=== PATIENT | female | born 1970 | race Two or more races ===

== ENCOUNTER → 2024-08-09 | Outpatient (CLI) | payer MEDICAID, SELFPAY ==
--- NOTE | 2024-08-09 14:30 | ECHO_ITS ---
Transthoracic Echo Report Ht (in): 65 Wt (lb): 280 Exam Location: Echo Lab Status: Preadmit [employer] Player: Jessica Craig Indications: Procedure Performed: BP: / HR: Rhythm: Sinus Technical Quality: Fair MEASUREMENTS (Male / Female) Normal Values 2D ECHO LV Diastolic Diameter PLAX 4.8 cm 4.2 - 5.9 / 3.9 - 5.3 cm LV Systolic Diameter PLAX 3.1 cm IVS Diastolic Thickness 1.1 cm 0.6 - 1.0 / 0.6 - 0.9 cm LVPW Diastolic Thickness 0.9 cm 0.6 - 1.0 / 0.6 - 0.9 cm LV Relative Wall Thickness 0.4 LVOT Diameter 1.9 cm LA Volume Index 14.2 cm?/m? 16 - 28 cm?/m? Ascending Aorta Diameter 2.7 cm M-MODE Aortic Root Diameter MM 2.7 cm LA Systolic Diameter MM 3.6 cm LA Ao Ratio MM 1.3 AV Cusp Separation MM 2.2 cm DOPPLER AV Peak Velocity 109.0 cm/s AV Peak Gradient 4.8 mmHg AV Mean Gradient 3.0 mmHg AV Velocity Time Integral 23.6 cm LVOT Peak Velocity 93.1 cm/s LVOT Peak Gradient 3.5 mmHg LVOT Velocity Time Integral 18.0 cm AV Area Cont Eq vti 2.2 cm? AV Area Cont Eq pk 2.4 cm? MV Peak Velocity 64.6 cm/s MV Peak Gradient 1.7 mmHg MV Mean Velocity 47.5 cm/s MV Mean Gradient 1.0 mmHg MV Area PHT 4.2 cm? Mitral E Point Velocity 65.5 cm/s Mitral A Point Velocity 61.6 cm/s Mitral E to A Ratio 1.1 LV E' Lateral Velocity 10.0 cm/s Mitral E to LV E' Lateral Ratio 6.5 LV E' Septal Velocity 6.6 cm/s Mitral E to LV E' Septal Ratio 9.9 TR Peak Velocity 157.0 cm/s TR Peak Gradient 9.9 mmHg FINDINGS Left Ventricle Normal left ventricular size, wall thickness, systolic function with no obvious regional wall motion abnormalities. The ejection fraction is visually estimated at 60-65%. Right Ventricle The right ventricle is normal in size and systolic function. The estimated right ventricular systoli c pressure, 17mmHg. RAP 5. Left Atrium The left atrium is normal by two-dimensional, color flow and Doppler imaging with no structural abnormalities, no thrombus formation present. Right Atrium The right atrium is normal by two-dimensional imaging, color flow and Doppler imaging with no struct ural abnormalities, no thrombus formation present. Atrial Septum The interatrial septum appears normal with no evidence of a shunt. Aorta The aorta is normal by two-dimensional, color flow and Doppler interrogation. Mitral Valve The mitral valve is normal by two-dimensional, color flow and Doppler interrogation. There is trace mitral valve regurgitation. Aortic Valve The aortic valve is trileaflet and normal by two-dimensional, color flow and Doppler interrogation. There is no significant aortic valve regurgitation. Tricuspid Valve The tricuspid valve is normal by two-dimensional, color flow and Doppler interrogation. There is tra ce tricuspid valve regurgitation. Pulmonic Valve There is no significant pulmonic valve regurgitation. Vessels The pulmonary artery appears normal. The inferior vena cava pulmonary and hepatic veins appear harshil l. Pericardium The pericardium is normal by two-dimensional imaging. There is no significant pericardial effusion. Other Findings Liver cyst present. CONCLUSIONS Indication: Malignant neoplasm Normal LV size and function. Estimated EF 60-65% Normal RV size and function. Trace MR, TR. Large Liver cyst present. Clint Kohler (Electronically Signed) Final Date: 09 August 2024 18:58
== END | disposition home or self-care (01) ==
LOC: SDIM 14:12
PROVIDERS: PCP Obstetrics & Gynecology; Referring Provider Internal Medicine Hematology & Oncology; Visit Provider Internal Medicine Hematology & Oncology
DX: K76.89 Other specified diseases of liver (principal); I08.1 Rheumatic disorders of both mitral and tricuspid valves; C50.212 Malignant neoplasm of upper-inner quadrant of left female breast
CPT/HCPCS: 93306

== ENCOUNTER 2024-08-10 10:50 | Outpatient (RCR) | payer MEDICAID, SELFPAY ==
--- NOTE | 2024-08-10 11:36 | CTCFLWUP_ITS ---
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 Postop TCH chemotherapy completed 11/10/2023 then adjuvant Herceptin started 11/30/2023. Adjuvant radi ation therapy completed 01/25/2024 4500 to 5040 cGy left breast and regional nodes with E boost to prim hans site Had PET/CT 07/12/2024 no mets. Examination of the left breast today reveals no sign of any recurrence .some left upper extremity lym phedema being cared for by lymphedema specialist in [place]. Assessment.1. Stage IIa HER2/conchita overexpressed receptor positive (status post partial mastectomy postop chemo and Herceptin and radiation therapy completed 01/25/2024. 2. Has trastuzumab to finish this year. Also on anastrozole 3. Seeing lymphedema specialist for her left upper extremity edema. 4. PET/CT 07/12/2024 no mets. 5. Has follow-up with her new medical oncologist Dr. Romero in 3 weeks. 6. Pt told that I will see her as needed in the future. Electronically signed by: Segundo Hinojosa M.D. 08/10/2024 11:33 AM
== END 2024-08-19 23:59 | disposition home or self-care (01) ==
LOC: SCTC 10:50
PROVIDERS: PCP Obstetrics & Gynecology; Referring Provider Obstetrics & Gynecology; Visit Provider Radiology Therapeutic Radiology
DX: C50.812 Malignant neoplasm of overlapping sites of left female breast (principal); Z17.0 Estrogen receptor positive status [ER+]; Z17.21 Progesterone receptor positive status; Z17.32 Human epidermal growth factor receptor 2 negative status; Z79.811 Long term (current) use of aromatase inhibitors; Z92.3 Personal history of irradiation; Z92.21 Personal history of antineoplastic chemotherapy; Z90.12 Acquired absence of left breast and nipple
CPT/HCPCS: 99213; G0463

== ENCOUNTER → 2024-08-15 | Outpatient (CLI) | payer MEDICAID, SELFPAY ==
[2024-08-14 15:41] LABS: HCG Qualitative,Urine Negative
--- NOTE | 2024-08-15 09:32 | XR_ITS ---
Examination: CT abdomen with intravenous contrast. Coronal 2-D reconstructions. Sagittal 2-D reconstructions. Date and time of exam:August 15, 2024 1002 hours INDICATIONS: History liver cysts, including 7 cm left lobe liver cyst on CT study May 03, 2023 CTDI: vol (mGy): 12.8 DLP: (mGycm): 536 Technique: Axial images of the abdomen have been obtained, 3 mm slice thickness, 60 cc [id number] 2-D sagittal coronal reconstructions Low dose protocols were performed. One or more of the following dose reduction techniques were used; automated exposure control, adjustment of the mA and/or KV according to patient size, use of iterative reconstruction technique. Findings: 8 cm left lobe liver cyst No gallstones Spleen not enlarged No pancreatic or adrenal mass No renal or ureteral calculi, no hydronephrosis Aorta normal size No bowel obstruction Normal appendix Grade 1 retrolisthesis L4 on L5 IMPRESSION: 8 cm left lobe liver cyst compared to 7 cm on May 03, 2023
== END | disposition home or self-care (01) ==
PROVIDERS: PCP Nurse Practitioner Family; Referring Provider Nurse Practitioner Family; Visit Provider Nurse Practitioner Family
DX: K76.89 Other specified diseases of liver (principal); Z32.00 Encounter for pregnancy test, result unknown
CPT/HCPCS: 74160; 81025; A4649; Q9967

== ENCOUNTER 2024-08-30 10:48 | Outpatient (RCR) | payer MEDICAID, SELFPAY ==
[2024-08-29 11:06] LABS: Basophils % (Auto) 1 % (0-2.5); Eosinophils # (Auto) 0.1 Thou/mm3 (0.0-0.5); Eosinophils % (Auto) 4 % (0-10); Hematocrit 38.9 % (36.0-46.0); Hemoglobin 12.9 g/dL (12.0-16.0); Immature Granulocytes % (Auto) 1 % (0-0); Immature Granulocytes Auto 0.02 Thou/mm3 (0.00-0.00); Lymphocytes # (Auto) 0.8 Thou/mm3 (1.0-4.8); Lymphocytes % (Auto) 20 % (10-50); Mean Corpuscular HGB Conc 33.2 g/dl (31.0-37.0); Mean Corpuscular Hemoglobin 29.9 pg (25.0-35.0); Mean Corpuscular Volume 90 fL (80-100); Monocytes # (Auto) 0.5 Thou/mm3 (0.0-0.8); Monocytes % (Auto) 12 % (0-12); Neutrophils # (Auto) 2.4 Thou/mm3 (1.8-7.7); Neutrophils % (Auto) 63 % (37-80); Nucleated Red Blood Cell % 0 /100 WBC (0); Platelet Count 204 Thou/mm3 (140-440); RDW Standard Deviation 44.8 fL (36.4-46.3); Red Blood Count 4.31 Miln/mm3 (4.00-5.20); White Blood Count 3.8 Thou/mm3 (3.6-11.0)
[2024-08-29 11:26] LABS: Alanine Aminotransferase 20 U/L (10-49); Albumin, Serum 4.5 gm/dL (3.5-5.0); Albumin/Globulin Ratio 1.7 (1.2-2.2); Alkaline Phosphatase 107 U/L (46-116); Anion Gap 6 (7-16); Aspartate Amino Transferase 15 U/L (0-34); BUN/Creatinine Ratio 21 Ratio (12-20); Bilirubin,Total 0.5 mg/dL (0.3-1.2); Blood Urea Nitrogen 15 mg/dL (9-23); Calcium 9.3 mg/dL (8.3-10.6); Calcium (Corrected) 9.3 mg/dL (8.5-10.1); Chloride 104 mMol/L (98-107); Creatinine (Component) 0.7 mg/dL (0.6-1.3); Globulin 2.6 gm/dL (2.3-3.5); Glucose 126 mg/dL (74-106); Osmolality,Calculated 276 (275-295); Potassium 3.9 mMol/L (3.4-5.1); Sodium 137 mMol/L (136-145); Total Protein 7.1 gm/dL (5.7-8.2); eGFR > 60 See Note
--- NOTE | 2024-09-17 18:42 | CTCFLWUP_ITS ---
Patient: SKYLER NO : 1970 Page 4 of 5 FOLLOW UP NOTE DATE OF SERVICE: 08/30/2024 NAME: SKYLER NO ACCOUNT: [id number] : 1970 AGE: 54 INTERVAL HISTORY: Patient is doing well with no new complaints ONCOLOGY HISTORY: DIAGNOSIS: Malignant neoplasm of upper-inner quadrant of left female breast [ICD10] C50.212 DATE OF DIAGNOSIS: 02/09/2023 STAGE/TNM: Stage IIa t1 cpN1 mi M0 ER positive HER2 positive status post adjuvant radiation completed on 5040 Gy left breast as well as regional lymph node boost TREATMENT HISTORY: Care?Plan Start?Date Cycle Day Intent AC-Taxol?Herceptin 06/01/2023 3 21 Curative?(adjuvant) TCH?1 08/15/2023 1 21 Curative?(adjuvant) Zoledronic?Acid?4?mg?adjuvant 06/06/2024 1 180 Curative?(adjuvant) Trastuzumab?6?mg/kg? To?Finish?the?Year 06/06/2024 1 21 Curative?(adjuvant) HISTORY OF PRESENT ILLNESS: This a 54-year-old Romanian speaking female with following oncology history. 10/24/2022: Bilateral screening mammogram 12/15/2022: Left breast diagnostic mammogram? 02/09/2023: Left breast ultrasound-guided biopsy? 03/17/2023: Patient had left breast lumpectomy as well as sentinel lymph node biopsy 05/03/2023: CT scan of the chest abdomen and pelvis with IV contrast? 05/05/2023: Echocardiogram?LVEF 55 to 60% 06/01/2023: Ms. No had 1 cycle of AC chemotherapy. Ms. No received AC chemotherapy due to short age of carboplatin. Unfortunately after the chemotherapy her left breast incision wound has opened u p which healed with secondary intention eventually. 08/16/2023?11/10/2019: Ms. No had 5 cycles of TCH chemotherapy. Continuing adjuvant Herceptin. 12/16/2023 - 01/25/2024: Ms. No had 5040 cGy radiation therapy to the left breast in the adjuvant set ting 01/12/2024: Ms. No is started on adjuvant anastrozole. OTHER MEDICAL HISTORY/CONDITIONS: Left?Breast?cancer?-?01/2023 Left breast lumpectomy wtih SLN biopsy - 03/17/23 Septoplasty - 20 yrs ago FAMILY HISTORY: Cancer History:?Paternal aunt - breast - dx 50's SOCIAL HISTORY: Occupational?History:?Unemployed Education?Level:?Attended College, did not graduate Marital?Status:? 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 MEDICATIONS: 1. anastrozole - 1 mg 1 tab 1 tab po q daily 2. Citracal plus D - 1500-200 mg-unit 1 tab Twice a Day 3. Green Tea - 100 mg Capsule As directed 4. meclizine - 25 mg 1 tab As directed 5. Tylenol Extra Strength - 500 mg 1 tab As directed Medications Last Reconciled by Korina López MA on 08/30/2024 ALLERGIES: No Known Drug Allergies REVIEW OF SYSTEMS: A complete 14-point review of systems was performed and is negative except as noted in interval histo ry. PHYSICAL EXAMINATION: VITAL SIGNS: Temperature?98, B/P?102/72, Oxygen?Saturation?98% Weight?208?lbs (Change?since?08/29/24: ?-0.8?lbs) PAIN: 0 - No pain ECOG Performance Status: 0 - Asymptomatic and fully active GENERAL APPEARANCE: Appears well, in no apparent distress, appropriately interactive. HEENT: Normocephalic, no temporal wasting, normal conjunctiva, no scleral icterus, normal hearing, li ps without lesions, neck normal range of motion. CARDIOVASCULAR: Not assessed. PULMONARY: Normal respiratory effort, no respiratory distress or use of accessory muscles, speaking i n full sentences, no tachypnea. EXTREMITIES: No pedal edema or cyanosis. SKIN: Normal skin appearance. NEUROLOGIC: Alert and oriented x4. PSHYCHIATRIC: Appropriate affect, mood normal, behavior normal, intact thought and speech. LABORATORY DATA: I have personally reviewed and interpreted each of the patient?s relevant lab tests, abnormal finding s are below: Date 08/29/24 ??GLUCOSE,RANDOM?(mg/dL) 126?H ??BLOOD?UREA?NITROGEN?(mg/dL) 15 ??CREATININE?(mg/dL) 0.70 ??SODIUM?(mmol/L) 137 ??POTASSIUM?(mmol/L) 3.9 ??CHLORIDE?(mmol/L) 104 ??CrCl?(CandG)?(ml/min) 105.72 ??AST/SGOT?(Unit/L) 15 ??ALT/SGPT?(Unit/L) 20 ??ALKALINE?PHOSPHATASE?(Unit/L) 107 ??BILIRUBIN,?TOTAL?(mg/dL) 0.5 ??PROTEIN?TOTAL?(gm/dl) 7.1 ??ALBUMIN,?SERUM?(gm/dl) 4.5 ??GLOBULIN?(gm/dl) 2.6 ??ALBUMIN/GLOBULIN?RATIO 1.7 ??CALCIUM,?SERUM?(mg/dL) 9.3 ??CALCIUM?SERUM?(CORRECTED)?(mg/dL) 9.3 ASSESSMENT/PLAN: Stage IIa HER2 positive ER positive status post lumpectomy 02/09/2023 post chemo and radiation complet ed on 01/25/2024 Patient have last 2 treatments of Herceptin left Tolerating well Patient also on anastrozole tolerating well Was already referred to lymphedema specialist and feeling better Last scan in June 2024 no mets Will get echocardiogram every 3 months Patient will need at least 1 echo after completing all Herceptin CBC CMP echo RETURN TO CLINIC: RTC in 2 months BILLING AND COMPLIANCE: I reviewed external records from providers outside my specialty as summarized above. I spent a total of 50 minutes on this patient?s care on the day of their visit excluding time spent related to any bi lled procedures. This time includes time spent with the patient as well as time spent documenting in the medical record, reviewing patients records and tests, obtaining history, placing orders, communi cating with other healthcare professionals, counseling the patient, family or caregiver, and/or care coordination for the diagnoses above. Electronically Signed by: Andres Romero MD T: 6:40 PM CC: PCP: Korina Donald Referring: Korina Donald This document was completed utilizing speech recognition software. Grammatical errors, random word in sertions, pronoun errors, and incomplete sentences are an occasional consequence of this system due t o software limitations, ambient noise, and hardware issues. Any formal questions or concerns about th e content, text or information contained within the body of this dictation should be directly address ed to the provider for clarification.
== END 2024-09-19 23:59 | disposition home or self-care (01) ==
LOC: SCTC 10:48
PROVIDERS: PCP Obstetrics & Gynecology; Referring Provider Obstetrics & Gynecology; Visit Provider Internal Medicine Hematology & Oncology
DX: C50.812 Malignant neoplasm of overlapping sites of left female breast (principal); Z17.0 Estrogen receptor positive status [ER+]; Z17.31 Human epidermal growth factor receptor 2 positive status; Z17.21 Progesterone receptor positive status; Z79.811 Long term (current) use of aromatase inhibitors; Z92.3 Personal history of irradiation
CPT/HCPCS: 36591; 80053; 85025; A4216; J1642; Q3014

== ENCOUNTER 2024-11-01 10:56 | Outpatient (RCR) | payer MEDICAID, SELFPAY ==
[2024-10-31 16:33] LABS: Basophils % (Auto) 1 % (0-2.5); Eosinophils # (Auto) 0.1 Thou/mm3 (0.0-0.5); Eosinophils % (Auto) 3 % (0-10); Hematocrit 39.5 % (36.0-46.0); Hemoglobin 13.5 g/dL (12.0-16.0); Immature Granulocytes % (Auto) 0 % (0-0); Immature Granulocytes Auto 0.01 Thou/mm3 (0.00-0.00); Lymphocytes # (Auto) 1.1 Thou/mm3 (1.0-4.8); Lymphocytes % (Auto) 27 % (10-50); Mean Corpuscular HGB Conc 34.2 g/dl (31.0-37.0); Mean Corpuscular Hemoglobin 30.8 pg (25.0-35.0); Mean Corpuscular Volume 90 fL (80-100); Monocytes # (Auto) 0.5 Thou/mm3 (0.0-0.8); Monocytes % (Auto) 11 % (0-12); Neutrophils # (Auto) 2.5 Thou/mm3 (1.8-7.7); Neutrophils % (Auto) 59 % (37-80); Nucleated Red Blood Cell % 0 /100 WBC (0); Platelet Count 163 Thou/mm3 (140-440); RDW Standard Deviation 44.8 fL (36.4-46.3); Red Blood Count 4.38 Miln/mm3 (4.00-5.20); White Blood Count 4.2 Thou/mm3 (3.6-11.0)
[2024-10-31 17:20] LABS: Alanine Aminotransferase 17 U/L (10-49); Albumin, Serum 4.3 gm/dL (3.5-5.0); Albumin/Globulin Ratio 1.7 (1.2-2.2); Alkaline Phosphatase 117 U/L (46-116); Anion Gap 4 (7-16); Aspartate Amino Transferase 22 U/L (0-34); BUN/Creatinine Ratio 35 Ratio (12-20); Bilirubin,Total 0.3 mg/dL (0.3-1.2); Blood Urea Nitrogen 21 mg/dL (9-23); Calcium 9.4 mg/dL (8.3-10.6); Calcium (Corrected) 9.4 mg/dL (8.5-10.1); Chloride 109 mMol/L (98-107); Creatinine (Component) 0.6 mg/dL (0.6-1.3); Globulin 2.5 gm/dL (2.3-3.5); Glucose 95 mg/dL (74-106); Osmolality,Calculated 278 (275-295); Potassium 3.7 mMol/L (3.4-5.1); Sodium 138 mMol/L (136-145); Total Protein 6.8 gm/dL (5.7-8.2); eGFR > 60 See Note
--- NOTE | 2024-11-01 13:17 | CTCFLWUP_ITS ---
Patient: SKYLER NO : 1970 Page 2 of 2 FOLLOW UP NOTE DATE OF SERVICE: 11/01/2024 NAME: SKYLER NO ACCOUNT: [id number] : 1970 AGE: 54 INTERVAL HISTORY: Patient is complaining of left sided chest pain. Pain is radiating to the arm. Patient says she also feels dizziness. She started having this chest pain while she was waiting for her clinic appointment ONCOLOGY HISTORY:?[facility] Hx? DIAGNOSIS: Malignant neoplasm of upper-inner quadrant of left female breast [ICD10] C50.212 DATE OF DIAGNOSIS: 02/09/2023 STAGE/TNM: Stage IIa t1 cpN1 mi M0 ER positive HER2 positive status post adjuvant radiation completed on 01/25/2024 5040 Gy left breast as well as regional lymph node boost TREATMENT HISTORY: Care?Plan Start?Date Cycle Day Intent AC-Taxol?Herceptin 06/01/2023 3 21 Curative?(adjuvant) TCH?1 08/15/2023 1 21 Curative?(adjuvant) Zoledronic?Acid?4?mg?adjuvant 06/06/2024 1 180 Curative?(adjuvant) Trastuzumab?6?mg/kg? To?Finish?the?Year 06/06/2024 1 21 Curative?(adjuvant) HISTORY OF PRESENT ILLNESS: This a 54-year-old German speaking female with following oncology history. 10/24/2022: Bilateral screening mammogram 12/15/2022: Left breast diagnostic mammogram? 02/09/2023: Left breast ultrasound-guided biopsy? 03/17/2023: Patient had left breast lumpectomy as well as sentinel lymph node biopsy 05/03/2023: CT scan of the chest abdomen and pelvis with IV contrast? 05/05/2023: Echocardiogram?LVEF 55 to 60% 06/01/2023: Ms. No had 1 cycle of AC chemotherapy. Ms. No received AC chemotherapy due to shortage of carboplatin. Unfortunately after the chemotherapy her left breast incision wound has opened up which healed with secondary intention eventually. 08/16/2023?11/10/2019: Ms. No had 5 cycles of TCH chemotherapy. Continuing adjuvant Herceptin. 12/16/2023 - 01/25/2024: Ms. No had 5040 cGy radiation therapy to the left breast in the adjuvant setting 01/12/2024: Ms. No is started on adjuvant anastrozole. OTHER MEDICAL HISTORY/CONDITIONS: Left?Breast?cancer?-?01/2023 Left breast lumpectomy wtih SLN biopsy - 03/17/23 Septoplasty - 20 yrs ago FAMILY HISTORY: Cancer History:?Paternal aunt - breast - dx 50's SOCIAL HISTORY: Occupational?History:?Unemployed Education?Level:?Attended College, did not graduate Marital?Status:? 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 MEDICATIONS: 1. anastrozole - 1 mg 1 tab 1 tab po q daily 2. Citracal plus D - 1500-200 mg-unit 1 tab Twice a Day 3. Green Tea - 100 mg Capsule As directed 4. meclizine - 25 mg 1 tab As directed 5. Tylenol Extra Strength - 500 mg 1 tab As directed?[place]ra Meds? Medications Last Reconciled by Korina López MA on 11/01/2024 ALLERGIES: No Known Drug Allergies REVIEW OF SYSTEMS: A complete 14-point review of systems was performed and is negative except as noted in interval history. PHYSICAL EXAMINATION:?[facility] PE? VITAL SIGNS: Temperature?99, B/P?129/83, Oxygen?Saturation?99% Weight?202?lbs (Change?since?10/31/24:?-3.8?lbs) PAIN: 0 - No pain ECOG Performance Status: 0 - Asymptomatic and fully active GENERAL APPEARANCE: Appears well, in no apparent distress, appropriately interactive. HEENT: Normocephalic, no temporal wasting, normal conjunctiva, no scleral icterus, normal hearing, lips without lesions, neck normal range of motion. CARDIOVASCULAR: Not assessed. PULMONARY: Normal respiratory effort, no respiratory distress or use of accessory muscles, speaking in full sentences, no tachypnea. EXTREMITIES: No pedal edema or cyanosis. SKIN: Normal skin appearance. NEUROLOGIC: Alert and oriented x4. PSHYCHIATRIC: Appropriate affect, mood normal, behavior normal, intact thought and speech. LABORATORY DATA: I have personally reviewed and interpreted each of the patient?s relevant lab tests, abnormal findings are below: Date 10/31/24 ??WHITE?BLOOD?COUNT?(Thou/mm3) 4.2 ??RED?BLOOD?COUNT?(Miln/mm3) 4.38 ??HEMOGLOBIN?(gm/dl) 13.5 ??HEMATOCRIT?(%) 39.5 ??PLATELET?COUNT?(Thou/mm3) 163 ??NEUTROPHILS?%,?AUTO?(%) 59 ??LYMPH?%,?AUTO?(%) 27 ??NEUTROPHILS,?AUTO?(Thou/mm3) 2.5 ASSESSMENT/PLAN:?Handy Romero Assessment/Plan? #1 left-sided chest pain Associated with the dizziness and pain radiating to the left arm History of left-sided chest pain can be from lymphedema Will send to the emergency room for EKG and troponins Patient will be set sent on wheelchair #2 stage IIa HER2 positive ER positive status post lumpectomy 02/09/2023 post chemo and radiation completed on 01/25/2024 Patient has completed adjuvant Herceptin Patient also on anastrozole tolerating well Was already referred to lymphedema specialist and feeling better Last scan in June 2024 no mets Will get echocardiogram every 3 months Patient will need at least 1 echo after completing all Herceptin Continue anastrozole and calcium and vitamin D Echo was scheduled CBC CMP RETURN TO CLINIC: I will see her back in the clinic in 2 months. BILLING AND COMPLIANCE: I reviewed external records from providers outside my specialty as summarized above. I spent a total of 50 minutes on this patient?s care on the day of their visit excluding time spent related to any billed procedures. This time includes time spent with the patient as well as time spent documenting in the medical record, reviewing patients records and tests, obtaining history, placing orders, communicating with other healthcare professionals, counseling the patient, family or caregiver, and/or care coordination for the diagnoses above. Electronically Signed by: Andres Romero MD T: 1:14 PM CC: PCP: Korina Donald Referring: Korina Donald This document was completed utilizing speech recognition software. Grammatical errors, random word insertions, pronoun errors, and incomplete sentences are an occasional consequence of this system due to software limitations, ambient noise, and hardware issues. Any formal questions or concerns about the content, text or information contained within the body of this dictation should be directly addressed to the provider for clarification.
== END 2024-11-17 23:59 | disposition home or self-care (01) ==
LOC: SCTC 10:56
PROVIDERS: PCP Obstetrics & Gynecology; Referring Provider Obstetrics & Gynecology; Visit Provider Internal Medicine Hematology & Oncology
DX: C50.812 Malignant neoplasm of overlapping sites of left female breast (principal); Z17.0 Estrogen receptor positive status [ER+]; Z17.21 Progesterone receptor positive status; Z17.32 Human epidermal growth factor receptor 2 negative status; Z90.12 Acquired absence of left breast and nipple; Z92.3 Personal history of irradiation; Z92.21 Personal history of antineoplastic chemotherapy; R07.9 Chest pain, unspecified; R42 Dizziness and giddiness; Z79.811 Long term (current) use of aromatase inhibitors
CPT/HCPCS: 36591; 80053; 85025; 99212; A4216; J1642; G0463

== ENCOUNTER 2024-11-01 12:03 | Emergency (ER) | payer MEDICAID, SELFPAY ==
--- NOTE | 2024-11-01 12:59 | EKG_ITS ---
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
--- NOTE | 2024-11-01 12:59 | PD.EDRME ---
Rapid Medical Screening Exam RME Arrival date/time: 11/01/24 12:03 54-year-old female with a history of breast cancer presents to the emergency room with a chief complaint of dizziness, lightheadedness, and numbness to the left arm x 1 day. Patient was sent over by the cancer treatment center. I have greeted and performed a focused initial assessment of this patient. A comprehensive ED assessment and evaluation of the patient, analysis of all test results, and completion of the medical decision making process will be conducted by additional ED providers. Chief Complaint: Shortness of Breath/Dyspnea Time Seen by Provider: 11/01/24 12:50 Vital signs reviewed by provider: Yes
[2024-11-01 13:02] VITALS: BP 119/66; PULSE 73; RESP 16; TEMP 36.7; O2SAT 100; BMI 33.6
[2024-11-01 13:19] LABS: Basophils % (Auto) 1 % (0-2.5); Eosinophils # (Auto) 0.1 Thou/mm3 (0.0-0.5); Eosinophils % (Auto) 2 % (0-10); Hematocrit 42.9 % (36.0-46.0); Hemoglobin 14.3 g/dL (12.0-16.0); Immature Granulocytes % (Auto) 0 % (0-0); Immature Granulocytes Auto 0.01 Thou/mm3 (0.00-0.00); Lymphocytes # (Auto) 1.2 Thou/mm3 (1.0-4.8); Lymphocytes % (Auto) 29 % (10-50); Mean Corpuscular HGB Conc 33.3 g/dl (31.0-37.0); Mean Corpuscular Hemoglobin 30.2 pg (25.0-35.0); Mean Corpuscular Volume 91 fL (80-100); Monocytes # (Auto) 0.5 Thou/mm3 (0.0-0.8); Monocytes % (Auto) 12 % (0-12); Neutrophils # (Auto) 2.4 Thou/mm3 (1.8-7.7); Neutrophils % (Auto) 56 % (37-80); Nucleated Red Blood Cell % 0 /100 WBC (0); Platelet Count 167 Thou/mm3 (140-440); Red Blood Count 4.73 Miln/mm3 (4.00-5.20); White Blood Count 4.3 Thou/mm3 (3.6-11.0)
[2024-11-01 13:34] LABS: B-Type Natriuretic Peptide < 20 pg/mL (0-100)
[2024-11-01 13:35] LABS: Partial Thromboplastin Time 29.5 Seconds (22.0-36.0); Prothrombin Time 10.8 Seconds (9.0-12.2)
[2024-11-01 13:37] LABS: Alanine Aminotransferase 18 U/L (10-49); Albumin, Serum 4.7 gm/dL (3.5-5.0); Albumin/Globulin Ratio 1.6 (1.2-2.2); Alkaline Phosphatase 107 U/L (46-116); Anion Gap 5 (7-16); Aspartate Amino Transferase 23 U/L (0-34); BUN/Creatinine Ratio 25 Ratio (12-20); Bilirubin,Total 0.4 mg/dL (0.3-1.2); Blood Urea Nitrogen 20 mg/dL (9-23); Carbon Dioxide 29.2 mMol/L (20.0-31.0); Chloride 106 mMol/L (98-107); Creatinine (Component) 0.8 mg/dL (0.6-1.3); Estimated Creatinine Clearance 89.9 mL/min (>60); Globulin 2.9 gm/dL (2.3-3.5); Glucose 91 mg/dL (74-106); Magnesium 1.9 mg/dL (1.6-2.6); Osmolality,Calculated 282 (275-295); Potassium 3.9 mMol/L (3.4-5.1); Sodium 140 mMol/L (136-145); Total Protein 7.6 gm/dL (5.7-8.2); Troponin I < 0.020 ng/mL (0.0-0.045); eGFR > 60 See Note
[2024-11-01 17:45] VITALS: BP 126/79; PULSE 75; RESP 18; TEMP 36.6; O2SAT 99
--- NOTE | 2024-11-01 17:53 | EDNOTE_ITS ---
<Statement entered by Rosetta Peter MD - 11/02/24 07:26> As co-signing physician, I was present and available for consult prn. I concur with the plan and care as documented by the midlevel provider. ED General RME/HPI General Chief complaint: Shortness of Breath/Dyspnea Stated complaint: SOB, LIGHT HEADED, NUMBNESS TO LEFT ARM Time Seen by Provider: 11/01/24 12:50 Arrival date/time: 11/01/24 12:03 RME / HPI RME / HPI narrative: 54-year-old female with a history of breast cancer presents to the emergency room with a chief complaint of dizziness, lightheadedness, and numbness to the left arm x 1 day. Patient was sent over by the cancer treatment center. Patient is concerned about having cardiac issues. Denies any other complaints no medications taken prior to arrival. Related Data Previous Rx's ?Medication ?Instructions ?Recorded cephalexin 500 mg capsule 500 mg PO QID #28 caps 08/19 Allergies Allergy/AdvReac Type Severity Reaction Status Date / Time No Known Allergies Allergy Verified 01/11/23 08:41 Review of Systems Review of Systems Narrative Review of Systems: Review of system reviewed and within normal limits except mentioned in HPI ED Exam Narrative Physical exam: VITAL SIGNS: Reviewed. GENERAL APPEARANCE: Alert and interactive, follows commands, no acute distress, HEAD AND FACE: Non-traumatic. ENT: PERRL, pink conjunctivitis, eyelid no trauma, Mucous membrane moist. NECK: Supple, nontender, no nuchal rigidity. CHEST: No tenderness, no crepitus, no paradoxical movement, no retractions. LUNGS: Clear, well ventilated, symmetric, no rales, no wheezing, no ronchi, no stridor, good breath sounds bilaterally. HEART: Regular rate, regular rhythm, no murmur, no gallops. ABDOMEN: Soft, positive bowel sounds, nondistended, no guarding, nontender, no rebound, no masses, RECTAL: Deferred. GENITAL: Deferred. NEUROLOGICAL: Gross motor function intact sensory function intact, Appropriate for age. MUSCULOSKELETAL: low back nontender, full range of motion. EXTREMITIES: Nontender, full range of motion. SKIN: Color pink, dry, no rash, no lacerations, no abrasions, no contusions. LYMPHATICS: Deferred. Course Quality Measures none Orders Category Date Time Status EKG (ED ONLY) *Do not use* NOW Care 11/01/24 12:59 Completed EKG (ED Only) Stat Exams 11/01/24 12:59 Draft B-Type Natriuretic Peptide Stat Lab 11/01/24 13:14 Completed CBC Stat Lab 11/01/24 13:14 Completed Comprehensive Metabolic Panel Stat Lab 11/01/24 13:14 Completed Magnesium Stat Lab 11/01/24 13:14 Completed Partial Thromboplastin Time Stat Lab 11/01/24 13:14 Completed Prothrombin Time with INR Stat Lab 11/01/24 13:14 Completed Troponin I Stat Lab 11/01/24 13:14 Completed Vital Signs Vital signs: Vital Signs Temperature 98.1 F 11/01/24 13:02 Pulse Rate 73 11/01/24 13:02 Respiratory Rate 16 11/01/24 13:02 Blood Pressure 119/66 11/01/24 13:02 Pulse Oximetry (%) 100 11/01/24 13:02 Oxygen Delivery Method Room Air 11/01/24 13:02 MDM Patient data External records reviewed:: None Clinical information provided by:: none Social determinants that could affect healthcare access:: none Patient has the following chronic illnesses:: Breast cancer How is presenting disease/condition affected by chronic disease/condition?: e xacerbated by Evaluation data The following diagnostics were reviewed and interpreted by me:: lab results and radiology exam(s) Lab and/or radiology exams considered but not ordered:: None Interpretation Summary: See results in MDM Medications Medications considered but not ordered:: None Medication administrations:: Plan Consultations Consultation(s) initiated? (list below): No Diagnosis Differential Diagnosis ED Complaint MDM: Paresthesia, ACS, chest pain Most likely diagnosis given after review of the tests above:: Paresthesia Admission Indicated Admission indicated?: not indicated Explain why admission is indicated or not indicated:: Stable Admission Request Was there a request for admission?: No Disposition Plan Disposition Plan: Discharge Discharge Attestation Discharge Attestation: The patient and all family members were given an opportunity to ask questions and understood the discharge instructions. Discharge instructions specifically effects, indications for sooner follow up or return to the emergency department, and the expected course of current diagnosis. Patient condition: Stable Medical Decision Making MDM Narrative MDM Narrative: 54-year-old female with a history of breast cancer presents to the emergency room with a chief complaint of dizziness, lightheadedness, and numbness to the left arm x 1 day. Patient was sent over by the cancer treatment center. Patient is concerned about having cardiac issues. Denies any other complaints no medications taken prior to arrival. Patient's cardiac workup all came back normal including normal troponin. EKG also came back normal sinus rhythm, ventricular rate of 75 bpm, no ST segment elevation depression noted. Results discussed with the patient. Prior to discharge patient told me that her symptoms is totally gone. Patient appears nontoxic and hemodynamically stable. Patient discharged home and instructed to follow-up with primary care provider in 24 to 48 hours. Instructed to return to the emergency department immediately if worsening of symptoms Differential Diagnosis Differential Diagnosis: Paresthesia, ACS, chest pain Lab Data 11/01/24 13:14 11/01/24 13:14 Labs: Lab Results 11/01/24 Range/Units 13:14 WBC 4.3 (3.6-11.0) Thou/mm3 RBC 4.73 (4.00-5.20) Miln/mm3 Hgb 14.3 (12.0-16.0) g/dL Hct 42.9 (36.0-46.0) % MCV 91 (80-100) fL MCH 30.2 (25.0-35.0) pg MCHC 33.3 (31.0-37.0) g/dl RDW Std Deviation 45.0 (36.4-46.3) fL Plt Count 167 (140-440) Thou/mm3 Neut % (Auto) 56 (37-80) % Lymph % (Auto) 29 (10-50) % [place] % (Auto) 12 (0-12) % Eos % (Auto) 2 (0-10) % Baso % (Auto) 1 (0-2.5) % Neut # (Auto) 2.4 (1.8-7.7) Thou/mm3 Lymph # (Auto) 1.2 (1.0-4.8) Thou/mm3 [place] # (Auto) 0.5 (0.0-0.8) Thou/mm3 Eos # (Auto) 0.1 (0.0-0.5) Thou/mm3 Baso # (Auto) 0.0 (0.0-0.2) Thou/mm3 Immature Gran # (Auto) 0.01 H (0.00-0.00) Thou/mm3 Absolute Nucleated RBC 0.00 (0.00-0.00) Thou/mm3 Immature Gran % 0 (0-0) % Nucleated RBC % 0 (0) /100 WBC PT 10.8 (9.0-12.2) Seconds INR 1.0 (0.9-1.3) APTT 29.5 (22.0-36.0) Seconds Sodium 140 (136-145) mMol/L Potassium 3.9 (3.4-5.1) mMol/L Chloride 106 (98-107) mMol/L Carbon Dioxide 29.2 (20.0-31.0) mMol/L Anion Gap 5 L (7-16) BUN 20 (9-23) mg/dL Creatinine 0.8 (0.6-1.3) mg/dL Estim Creat Clear Calc 89.9 (>60) mL/min eGFR > 60 (60 - ) See Note BUN/Creatinine Ratio 25 H (12-20) Ratio Glucose 91 (74-106) mg/dL Calculated Osmolality 282 (275-295) Calcium 10.0 (8.3-10.6) mg/dL Corrected Calcium 10.0 (8.5-10.1) mg/dL Magnesium 1.9 (1.6-2.6) mg/dL Total Bilirubin 0.4 (0.3-1.2) mg/dL AST 23 (0-34) U/L ALT 18 (10-49) U/L Alkaline Phosphatase 107 (46-116) U/L Troponin I < 0.020 (0.0-0.045) ng/mL B-Natriuretic Peptide < 20 (0-100) pg/mL Total Protein 7.6 (5.7-8.2) gm/dL Albumin 4.7 (3.5-5.0) gm/dL Globulin 2.9 (2.3-3.5) gm/dL Albumin/Globulin Ratio 1.6 (1.2-2.2) Discharge Plan Plan Patient Disposition: HOME (Self Care) Disposition Comment: Stable Prescriptions/Referrals Prescriptions/Med Rec: No Action cephalexin 500 mg capsule 500 mg PO QID Qty: 28 0RF Referrals: Korina Donald MD [Primary Care Provider] - In 1 week Problem List Clinical Impression: Arm paresthesia, left Patient/Caregiver Discharge Instructions Discharge Activity: activity as tolerated Education Materials: ED Paraesthesias Additional Instructions: Thank you for the opportunity for serving you today. You are stable for discharged . You are advised to: Follow-up with your PCP in 1 to 2 days Return to ED for worsening of symptoms Print Language: Venezuelan Stand Alone Forms: Darlene Award Info., Patient Portal Info Letter PA/THUY Supervising Physician PA/THUY Supervising Physician: MD Brittani
== END 2024-11-01 18:05 | disposition home or self-care (01) ==
PROVIDERS: Nurse Practitioner Family; Emergency Provider Emergency Medicine; PCP Obstetrics & Gynecology
DX: R20.2 Paresthesia of skin (principal); R42 Dizziness and giddiness
CPT/HCPCS: 36415; 80053; 83735; 83880; 84484; 85025; 85610; 85730; 93005; 99283

== ENCOUNTER 2024-12-19 08:50 | Day surgery (SDC) | payer MEDICAID, SELFPAY ==
[2024-12-18 08:19] LABS: HCG Qualitative,Urine Negative
[2024-12-18 15:22] VITALS: BMI 34.4
[2024-12-19] VITALS (15 sets, daily range): BP systolic 97–129; BP diastolic 46–74; PULSE 80–99; RESP 11–19; TEMP 36.7–36.9; O2SAT 98–100; BMI 33.6
[2024-12-19] MEDS: RINGERS LACTATED 1000 ML 1,000 ML 60 ML IV (10:25)
[2024-12-19] MEDS: DiphenhydrAMINE INJ 50 MG/ML VIAL 25 MG IV (10:27)
[2024-12-19] MEDS: MIDAZOLAM INJ 1 MG/ML VIAL 2 ML (ASD USE ONLY) 2 MG IV (10:27)
[2024-12-19] MEDS: fentaNYL CIT INJ 50 mCg/ML AMP 2ML (ASD USE ONLY) IV (10:27)
== END 2024-12-19 11:20 | disposition home or self-care (01) ==
PROVIDERS: PCP Obstetrics & Gynecology; Referring Provider Specialist; Visit Provider Specialist
PROC: 0DBE8ZX Excision of Large Intestine, Via Natural or Artificial Opening Endoscopic, Diagnostic (ICD-10-PCS; CPT 45380; principal; 2024-12-19 11:30)
DX: Z12.11 Encounter for screening for malignant neoplasm of colon (principal); K60.2 Anal fissure, unspecified; K64.9 Unspecified hemorrhoids
CPT/HCPCS: 45378; 80053; 81001; 81025; 85025; 85610; 85730; A4217; J1200; J2250; J3010; J7120

== ENCOUNTER 2025-02-02 07:54 | Outpatient (RCR) | payer MEDICAID, SELFPAY | END 2025-02-17 23:59 | disposition home or self-care (01) | LOC: SCTC 07:54 | PROVIDERS: PCP Obstetrics & Gynecology; Referring Provider Obstetrics & Gynecology; Visit Provider Internal Medicine Hematology & Oncology | DX: Z45.2 Encounter for adjustment and management of vascular access device (principal); C50.812 Malignant neoplasm of overlapping sites of left female breast; Z17.0 Estrogen receptor positive status [ER+]; Z17.32 Human epidermal growth factor receptor 2 negative status; Z17.21 Progesterone receptor positive status | CPT/HCPCS: 96523; A4216; J1642 ==

== ENCOUNTER → 2025-02-03 | Outpatient (CLI) | payer MEDICAID, SELFPAY ==
--- NOTE | 2025-02-03 09:00 | XR_ITS ---
MRI shoulder, right, without contrast. Date and time: February 03, 2025 0909 hrs. Indications: Right shoulder pain clicking and swelling 1 year Technique: Multiple axial, sagittal and coronal sections of the shoulder have been obtained. Siemens high-resolution 1.5 Chyna MRI scanner is utilized. Axial fat-suppressed sections, TR 2350, TE 18 T2-weighted coronal fat-saturated images, TR 3500, TE 7100 T1-weighted coronal images, TR 500, TE 15 T2-weighted sagittal fat-saturated images, TR 3500, TE 57 T1-weighted sagittal sections, TR 504, TE 13. Findings: Coronal image 13 suspicious for 15 mm full-thickness rotator cuff tear Subscapularis insertion is intact. Subscapularis bursa is not seen. Long head of the biceps is in the bicipital groove. No definite tear of the biceps superior labral anchor is seen. Retraction of the musculotendinous junction of the rotator cuff is not significant. Tendinosis pattern is moderate. Distance between the acromium and humeral head is 4.9 mm Atrophy of the supraspinatus muscle is mild . Atrophy of the infraspinatus muscle is not seen. Sagittal sections demonstrate a horizontal acromion. Acromioclavicular joint demonstrates mild osteoarthritis . Osacromiale is not identified. Fraying and irregularity anterior superior labral margin. Bony glenoid fossa on the sagittal sections does not demonstrate osseous defect. Occult fracture or area of avascular necrosis is not seen. Acromioclavicular joint separation is not visible. Defect in the posterolateral margin of the humeral head is not seen Impression: Recommend this patient return for MR arthrography followed by post intra-articular contrast images of the shoulder to confirm full-thickness rotator cuff tear Fraying and irregularity anterior superior labral margins
== END | disposition home or self-care (01) ==
LOC: SMRI 08:35
PROVIDERS: PCP Nurse Practitioner Family; Referring Provider Nurse Practitioner Family; Visit Provider Nurse Practitioner Family
DX: M25.811 Other specified joint disorders, right shoulder (principal)
CPT/HCPCS: 73221

== ENCOUNTER → 2025-02-26 | Outpatient (CLI) | payer MEDICAID, SELFPAY ==
--- NOTE | 2025-02-26 15:57 | ECHO_ITS ---
Transthoracic Echo Report Ht (in): 64 Wt (lb): 207 Exam Location: Echo Lab Status: Outpatient Rare/Endangered Species Specialist: Karlene Irvin Indications: Procedure Performed: BP: / HR: MEASUREMENTS (Male / Female) Normal Values 2D ECHO LV Diastolic Diameter PLAX 4.0 cm 4.2 - 5.9 / 3.9 - 5.3 cm LV Systolic Diameter PLAX 2.5 cm IVS Diastolic Thickness 0.8 cm 0.6 - 1.0 / 0.6 - 0.9 cm LVPW Diastolic Thickness 1.0 cm 0.6 - 1.0 / 0.6 - 0.9 cm LV Relative Wall Thickness 0.5 LVOT Diameter 1.7 cm LA Volume Index 17.0 cm?/m? 16 - 28 cm?/m? M-MODE Aortic Root Diameter MM 2.2 cm LA Systolic Diameter MM 3.4 cm LA Ao Ratio MM 1.5 AV Cusp Separation MM 1.6 cm DOPPLER AV Peak Velocity 98.5 cm/s AV Peak Gradient 3.9 mmHg AV Mean Gradient 2.5 mmHg AV Velocity Time Integral 21.6 cm LVOT Peak Velocity 89.4 cm/s LVOT Peak Gradient 3.2 mmHg LVOT Velocity Time Integral 20.5 cm AV Area Cont Eq vti 2.2 cm? AV Area Cont Eq pk 2.1 cm? MV Area PHT 3.4 cm? Mitral E Point Velocity 77.6 cm/s Mitral A Point Velocity 82.9 cm/s Mitral E to A Ratio 0.9 LV E' Lateral Velocity 10.3 cm/s Mitral E to LV E' Lateral Ratio 7.5 LV E' Septal Velocity 9.3 cm/s Mitral E to LV E' Septal Ratio 8.4 PV Peak Velocity 90.9 cm/s PV Peak Gradient 3.3 mmHg FINDINGS Left Ventricle Normal left ventricular size, wall thickness, systolic function with no obvious regional wall motion abnormalities. Normal left ventricular diastolic filling pattern for age. The ejection fraction is visually estimated at 65 %. Right Ventricle The right ventricle is normal in size and systolic function. Left Atrium The left atrium is normal by two-dimensional, color flow and Doppler imaging with no structural abnormalities, no thrombus formation present. Right Atrium The right atrium is normal by two-dimensional imaging, color flow and Doppler imaging with no structural abnormalities, no thrombus formation present. Atrial Septum The interatrial septum appears normal with no evidence of a shunt. Aorta The aorta is normal by two-dimensional, color flow and Doppler interrogation. Mitral Valve The mitral valve is normal by two-dimensional, color flow and Doppler interrogation. There is no significant mitral valve regurgitation, stenosis or prolapse. Aortic Valve The aortic valve is trileaflet and normal by two-dimensional, color flow and Doppler interrogation. There is no significant aortic valve regurgitation. Tricuspid Valve The tricuspid valve is normal by two-dimensional, color flow and Doppler interrogation. There is trace tricuspid valve regurgitation. Pulmonic Valve The pulmonic valve is not well visualized. There is no significant pulmonic valve regurgitation. Vessels The pulmonary artery appears normal. The inferior vena cava pulmonary and hepatic veins appear normal. Pericardium The pericardium is normal by two-dimensional imaging. There is no significant pericardial effusion. Other Findings Large liver cyst. CONCLUSIONS Indication: Malignant neoplasm of upper inner quadrant Normal LV size and wall thickness. Normal left ventricular diastolic filling pattern for age. Estimated EF at 65 %. The RV is normal in size and systolic function. Trace TR. Large liver cyst present. Sandra Villarreal (Electronically Signed) Final Date: 26 February 2025 23:29
== END | disposition home or self-care (01) ==
LOC: SDIM 15:51
PROVIDERS: PCP Obstetrics & Gynecology; Referring Provider Internal Medicine Hematology & Oncology; Visit Provider Internal Medicine Hematology & Oncology
DX: K76.89 Other specified diseases of liver (principal); I07.1 Rheumatic tricuspid insufficiency; C50.212 Malignant neoplasm of upper-inner quadrant of left female breast
CPT/HCPCS: 93306

== ENCOUNTER → 2025-03-06 | Outpatient (CLI) | payer MEDICAID, SELFPAY ==
[2025-03-06 10:58] LABS: Basophils % (Auto) 1 % (0-2.5); Eosinophils # (Auto) 0.1 Thou/mm3 (0.0-0.5); Eosinophils % (Auto) 2 % (0-10); Hemoglobin 12.8 g/dL (12.0-16.0); Immature Granulocytes % (Auto) 0 % (0-0); Immature Granulocytes Auto 0.01 Thou/mm3 (0.00-0.00); Lymphocytes # (Auto) 0.7 Thou/mm3 (1.0-4.8); Lymphocytes % (Auto) 25 % (10-50); Mean Corpuscular HGB Conc 33.7 g/dl (31.0-37.0); Mean Corpuscular Hemoglobin 30.8 pg (25.0-35.0); Mean Corpuscular Volume 92 fL (80-100); Monocytes # (Auto) 0.3 Thou/mm3 (0.0-0.8); Monocytes % (Auto) 12 % (0-12); Neutrophils # (Auto) 1.6 Thou/mm3 (1.8-7.7); Neutrophils % (Auto) 60 % (37-80); Nucleated Red Blood Cell % 0 /100 WBC (0); Platelet Count 132 Thou/mm3 (140-440); RDW Standard Deviation 45.8 fL (36.4-46.3); Red Blood Count 4.15 Miln/mm3 (4.00-5.20)
[2025-03-06 11:02] LABS: White Blood Count 2.7 Thou/mm3 (3.6-11.0)
[2025-03-06 11:12] LABS: Glucose Estimated Average 103 mg/dL (80-131); Hemoglobin A1C 5.2 % Hgb (4.8-6.0)
[2025-03-06 11:24] LABS: Alanine Aminotransferase 15 U/L (10-49); Albumin, Serum 4.2 gm/dL (3.5-5.0); Albumin/Globulin Ratio 1.8 (1.2-2.2); Alkaline Phosphatase 97 U/L (46-116); Anion Gap 8 (7-16); Aspartate Amino Transferase 20 U/L (0-34); BUN/Creatinine Ratio 20 Ratio (12-20); Bilirubin,Total 0.5 mg/dL (0.3-1.2); Blood Urea Nitrogen 16 mg/dL (9-23); Calcium 9.2 mg/dL (8.3-10.6); Calcium (Corrected) 9.2 mg/dL (8.5-10.1); Carbon Dioxide 28.2 mMol/L (20.0-31.0); Chloride 107 mMol/L (98-107); Creatinine (Component) 0.8 mg/dL (0.6-1.3); Globulin 2.3 gm/dL (2.3-3.5); Glucose 91 mg/dL (74-106); Osmolality,Calculated 286 (275-295); Potassium 4.1 mMol/L (3.4-5.1); Sodium 143 mMol/L (136-145); Total Protein 6.5 gm/dL (5.7-8.2); eGFR > 60 See Note
== END | disposition home or self-care (01) ==
LOC: COPL 10:09
PROVIDERS: PCP Obstetrics & Gynecology; Referring Provider Specialist; Visit Provider Specialist
DX: Z01.812 Encounter for preprocedural laboratory examination (principal); I83.12 Varicose veins of left lower extremity with inflammation; I83.812 Varicose veins of left lower extremity with pain
CPT/HCPCS: 36415; 80053; 83036; 85025

== ENCOUNTER 2025-05-01 11:21 | Outpatient (RCR) | payer MEDICAID, SELFPAY ==
[2025-04-30 09:36] LABS: Basophils # (Auto) 0.0 Thou/mm3 (0.0-0.2); Basophils % (Auto) 1 % (0-2.5); Eosinophils # (Auto) 0.1 Thou/mm3 (0.0-0.5); Eosinophils % (Auto) 5 % (0-10); Hematocrit 39.0 % (36.0-46.0); Hemoglobin 13.4 g/dL (12.0-16.0); Immature Granulocytes Auto 0.01 Thou/mm3 (0.00-0.00); Lymphocytes # (Auto) 0.7 Thou/mm3 (1.0-4.8); Lymphocytes % (Auto) 22 % (10-50); Mean Corpuscular HGB Conc 34.4 g/dl (31.0-37.0); Mean Corpuscular Hemoglobin 31.5 pg (25.0-35.0); Mean Corpuscular Volume 92 fL (80-100); Monocytes # (Auto) 0.3 Thou/mm3 (0.0-0.8); Monocytes % (Auto) 11 % (0-12); Neutrophils # (Auto) 1.9 Thou/mm3 (1.8-7.7); Neutrophils % (Auto) 62 % (37-80); Nucleated Red Blood Cell # 0.00 Thou/mm3 (0.00-0.00); Nucleated Red Blood Cell % 0 /100 WBC (0); Platelet Count 142 Thou/mm3 (140-440); RDW Standard Deviation 44.8 fL (36.4-46.3); Red Blood Count 4.25 Miln/mm3 (4.00-5.20); White Blood Count 3.1 Thou/mm3 (3.6-11.0)
[2025-04-30 09:53] LABS: Alanine Aminotransferase 13 U/L (10-49); Albumin, Serum 4.1 gm/dL (3.5-5.0); Albumin/Globulin Ratio 1.6 (1.2-2.2); Alkaline Phosphatase 91 U/L (46-116); Anion Gap 8 (7-16); Aspartate Amino Transferase 18 U/L (0-34); BUN/Creatinine Ratio 17 Ratio (12-20); Bilirubin,Total 0.5 mg/dL (0.3-1.2); Blood Urea Nitrogen 12 mg/dL (9-23); Calcium 9.3 mg/dL (8.3-10.6); Calcium (Corrected) 9.3 mg/dL (8.5-10.1); Carbon Dioxide 25.1 mMol/L (20.0-31.0); Chloride 109 mMol/L (98-107); Creatinine (Component) 0.7 mg/dL (0.6-1.3); Globulin 2.5 gm/dL (2.3-3.5); Glucose 107 mg/dL (74-106); Osmolality,Calculated 282 (275-295); Potassium 3.9 mMol/L (3.4-5.1); Sodium 142 mMol/L (136-145); Total Protein 6.6 gm/dL (5.7-8.2); eGFR > 60 See Note
[2025-04-30 10:10] LABS: CA 15-3 13.4 U/mL (<32.4)
--- NOTE | 2025-05-01 12:05 | CTCFLWUP_ITS ---
Patient: SKYLER NO : 1970 Page 5 of 6 FOLLOW UP NOTE DATE OF SERVICE: 05/01/2025 NAME: SKYLER NO ACCOUNT: [id number] : 1970 AGE: 54 INTERVAL HISTORY: Patient is doing well. Have body ache . ONCOLOGY HISTORY: DIAGNOSIS: Malignant neoplasm of upper-inner quadrant of left female breast [ICD10] C50.212 DATE OF DIAGNOSIS: 02/09/2023 STAGE/TNM: Stage IIa t1 cpN1 mi M0 ER positive HER2 positive status post adjuvant radiation completed on 01/25/2024 5040 Gy left breast as well as regional lymph node boost TREATMENT HISTORY: Care?Plan Start?Date Cycle Day Intent AC-Taxol?Herceptin 06/01/2023 3 21 Curative?(adjuvant) TCH?1 08/15/2023 1 21 Curative?(adjuvant) Zoledronic?Acid?4?mg?adjuvant 06/06/2024 1 180 Curative?(adjuvant) Trastuzumab?6?mg/kg? To?Finish?the?Year 06/06/2024 1 21 Curative?(adjuvant) HISTORY OF PRESENT ILLNESS: This a 54-year-old Citizen Of [place] speaking female with following oncology history. 10/24/2022: Bilateral screening mammogram 12/15/2022: Left breast diagnostic mammogram? 02/09/2023: Left breast ultrasound-guided biopsy? 03/17/2023: Patient had left breast lumpectomy as well as sentinel lymph node biopsy 05/03/2023: CT scan of the chest abdomen and pelvis with IV contrast? 05/05/2023: Echocardiogram?LVEF 55 to 60% 06/01/2023: Ms. No had 1 cycle of AC chemotherapy. Ms. No received AC chemotherapy due to shortage of carboplatin. Unfortunately after the chemotherapy her left breast incision wound has opened up which healed with secondary intention eventually. 08/16/2023?11/10/2019: Ms. No had 5 cycles of TCH chemotherapy. Continuing adjuvant Herceptin. 12/16/2023 - 01/25/2024: Ms. No had 5040 cGy radiation therapy to the left breast in the adjuvant setting 01/12/2024: Ms. No is started on adjuvant anastrozole. OTHER MEDICAL HISTORY/CONDITIONS: Left?Breast?cancer?-?01/2023 Left breast lumpectomy wtih SLN biopsy - 03/17/23 Septoplasty - 20 yrs ago FAMILY HISTORY: Cancer History:?Paternal aunt - breast - dx 50's SOCIAL HISTORY: Occupational?History:?Unemployed Education?Level:?Attended College, did not graduate Marital?Status:? Tobacco?Use:?Denies ETOH?Use:?Rarely Drug?Note:?Marijuana 3x/week x 3 yrs - Quit 3-4 yrs ago Social?History?Note:?Lives?with? 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 MEDICATIONS: 1. anastrozole - 1 mg 1 tab Daily 2. Citracal plus D - 1500-200 mg-unit 1 tab Twice a Day 3. Green Tea - 100 mg Capsule As directed 4. meclizine - 25 mg 1 tab As directed 5. Tylenol Extra Strength - 500 mg 1 tab As directed Medications Last Reconciled by Korina Carrion MD on 05/01/2025 ALLERGIES: No Known Drug Allergies REVIEW OF SYSTEMS: A complete 14-point review of systems was performed and is negative except as noted in interval history. PHYSICAL EXAMINATION: VITAL SIGNS: Temperature?99.7, B/P?108/73, Oxygen?Saturation?97% Weight?209?lbs (Change?since?04/30/25:?0?lbs) PAIN: 0 - No pain ECOG Performance Status: 0 - Asymptomatic and fully active GENERAL APPEARANCE: Appears well, in no apparent distress, appropriately interactive. HEENT: Normocephalic, no temporal wasting, normal conjunctiva, no scleral icterus, normal hearing, lips without lesions, neck normal range of motion. CARDIOVASCULAR: Not assessed. PULMONARY: Normal respiratory effort, no respiratory distress or use of accessory muscles, speaking in full sentences, no tachypnea. EXTREMITIES: No pedal edema or cyanosis. SKIN: Normal skin appearance. NEUROLOGIC: Alert and oriented x4. PSHYCHIATRIC: Appropriate affect, mood normal, behavior normal, intact thought and speech. LABORATORY DATA: I have personally reviewed and interpreted each of the patient?s relevant lab tests, abnormal findings are below: Date 03/06/25 04/30/25 ??WHITE?BLOOD?COUNT?(Thou/mm3) 2.7?L 3.1?L ??RED?BLOOD?COUNT?(Miln/mm3) 4.15 4.25 ??HEMOGLOBIN?(gm/dl) 12.8 13.4 ??HEMATOCRIT?(%) 38.0 39.0 ??PLATELET?COUNT?(Thou/mm3) 132?L 142 ??NEUTROPHILS?%,?AUTO?(%) 60 62 ??LYMPH?%,?AUTO?(%) 25 22 ??NEUTROPHILS,?AUTO?(Thou/mm3) 1.6?L 1.9 ??GLUCOSE,RANDOM?(mg/dL) 91 107?H ??BLOOD?UREA?NITROGEN?(mg/dL) 16 12 ??CREATININE?(mg/dL) 0.80 0.70 ??SODIUM?(mmol/L) 143 142 ??POTASSIUM?(mmol/L) 4.1 3.9 ??CHLORIDE?(mmol/L) 107 109?H ??CrCl?(CandG)?(ml/min) 92.19 105.78 ??AST/SGOT?(Unit/L) 20 18 ??ALT/SGPT?(Unit/L) 15 13 ??ALKALINE?PHOSPHATASE?(Unit/L) 97 91 ??BILIRUBIN,?TOTAL?(mg/dL) 0.5 0.5 ??PROTEIN?TOTAL?(gm/dl) 6.5 6.6 ??ALBUMIN,?SERUM?(gm/dl) 4.2 4.1 ??GLOBULIN?(gm/dl) 2.3 2.5 ??ALBUMIN/GLOBULIN?RATIO 1.8 1.6 ??CALCIUM,?SERUM?(mg/dL) 9.2 9.3 ??CALCIUM?SERUM?(CORRECTED)?(mg/dL) 9.2 9.3 ASSESSMENT/PLAN: stage IIa HER2 positive ER positive status post lumpectomy 02/09/2023 post chemo and radiation completed on 01/25/2024 Patient has completed adjuvant Herceptin Patient also on anastrozole ,have bpody ache Was already referred to lymphedema specialist and feeling better Last scan in June 2024 no mets Will get echocardiogram every 3 months Patient will need at least 1 echo after completing all Herceptin Change to letrozole Cont calciukm an dvitD3 Start Zometa every 6 months ORDERS: Order # Description RETURN TO CLINIC: I reviewed the diagnosis, prognosis, and recommended treatment/procedure options with the patient (and/or their legal commercial sales representative), including the potential benefits, risks, side effects and alternative therapies. We also discussed the option of no treatment and the possibility of clinical trial participation, if applicable. All questions were addressed, and they demonstrated understanding. They provided informed consent to proceed with the proposed plan of care. BILLING AND COMPLIANCE: I reviewed external records from providers outside my specialty as summarized above. I spent a total of 50 minutes on this patient?s care on the day of their visit excluding time spent related to any billed procedures. This time includes time spent with the patient as well as time spent documenting in the medical record, reviewing patients records and tests, obtaining history, placing orders, communicating with other healthcare professionals, counseling the patient, family or caregiver, and/or care coordination for the diagnoses above. Electronically Signed by: {Object.Sanct_ID*PnP.NameFL@M}, {Object.Sanct_ID*PnP.Suffix@U} D: {Object.Sanct_Date} T: {Object.Sanct_Time} CC: PCP: Korina Donald Referring: Korina Donald This document was completed utilizing speech recognition software. Grammatical errors, random word insertions, pronoun errors, and incomplete sentences are an occasional consequence of this system due to software limitations, ambient noise, and hardware issues. Any formal questions or concerns about the content, text or information contained within the body of this dictation should be directly addressed to the provider for clarification.
== END 2025-05-20 23:59 | disposition home or self-care (01) ==
LOC: SCTC 11:21
PROVIDERS: PCP Obstetrics & Gynecology; Referring Provider Obstetrics & Gynecology; Visit Provider Internal Medicine Hematology & Oncology
DX: C50.812 Malignant neoplasm of overlapping sites of left female breast (principal); Z17.0 Estrogen receptor positive status [ER+]; Z17.21 Progesterone receptor positive status; Z17.31 Human epidermal growth factor receptor 2 positive status; Z90.12 Acquired absence of left breast and nipple; Z92.3 Personal history of irradiation; Z92.21 Personal history of antineoplastic chemotherapy; Z79.811 Long term (current) use of aromatase inhibitors
CPT/HCPCS: 36591; 80053; 85025; 86300; 99212; A4216; J1642; G0463

== ENCOUNTER → 2025-06-03 | Outpatient (CLI) | payer MEDICAID, SELFPAY ==
--- NOTE | 2025-06-03 | ECHO_ITS ---
Transthoracic Echo Report Ht (in): 64 Wt (lb): 208 Exam Location: Echo Lab Status: Outpatient Property Officer: Karlene Irvin Indications: Procedure Performed: BP: / HR: Technical Quality: Technically difficult study MEASUREMENTS (Male / Female) Normal Values 2D ECHO LV Diastolic Diameter PLAX 4.5 cm 4.2 - 5.9 / 3.9 - 5.3 cm LV Systolic Diameter PLAX 3.3 cm IVS Diastolic Thickness 1.0 cm 0.6 - 1.0 / 0.6 - 0.9 cm LVPW Diastolic Thickness 0.9 cm 0.6 - 1.0 / 0.6 - 0.9 cm LV Relative Wall Thickness 0.4 LVOT Diameter 1.9 cm LA Systolic Diameter LX 3.0 cm 3.0 - 4.0 / 2.7 - 3.8 cm LV Ejection Fraction MOD BP 53.6 % >= 55 % LV Ejection Fraction MOD 4C 51.4 % LV Ejection Fraction 4C AL 53.5 % LV Ejection Fraction MOD 2C 60.1 % LV Ejection Fraction 2C AL 62.2 % LA Volume Index 13.4 cm?/m? 16 - 28 cm?/m? DOPPLER AV Peak Velocity 86.1 cm/s AV Peak Gradient 3.0 mmHg AV Mean Gradient 2.0 mmHg AV Velocity Time Integral 19.2 cm LVOT Peak Velocity 91.6 cm/s LVOT Peak Gradient 3.4 mmHg LVOT Velocity Time Integral 23.5 cm AV Area Cont Eq vti 3.5 cm? AV Area Cont Eq pk 3.0 cm? MV Area PHT 3.4 cm? Mitral E Point Velocity 75.2 cm/s Mitral A Point Velocity 52.4 cm/s Mitral E to A Ratio 1.4 LV E' Lateral Velocity 9.4 cm/s Mitral E to LV E' Lateral Ratio 8.0 LV E' Septal Velocity 9.5 cm/s Mitral E to LV E' Septal Ratio 7.9 TR Peak Velocity 185.5 cm/s TR Peak Gradient 13.8 mmHg FINDINGS Left Ventricle Normal left ventricular size, wall thickness, systolic function with no obvious regional wall motion abnormalities. Normal left ventricular diastolic filling pattern for age. The ejection fraction is visually estimated at 65 %. Right Ventricle The right ventricle is normal in size and systolic function. Left Atrium The left atrium is normal by two-dimensional, color flow and Doppler imaging with no structural abnormalities, no thrombus formation present. Right Atrium The right atrium is normal by two-dimensional imaging, color flow and Doppler imaging with no structural abnormalities, no thrombus formation present. Atrial Septum The interatrial septum appears normal with no evidence of a shunt. Aorta The aorta is normal by two-dimensional, color flow and Doppler interrogation. Mitral Valve The mitral valve is normal by two-dimensional, color flow and Doppler interrogation. There is no significant mitral valve regurgitation, stenosis or prolapse. Aortic Valve The aortic valve is trileaflet and normal by two-dimensional, color flow and Doppler interrogation. There is no significant aortic valve regurgitation. Tricuspid Valve The tricuspid valve is normal by two-dimensional, color flow and Doppler interrogation. There is mild tricuspid valve regurgitation. Pulmonic Valve The pulmonic valve is not well visualized. There is no significant pulmonic valve regurgitation. Vessels The pulmonary artery appears normal. The inferior vena cava pulmonary and hepatic veins appear normal. Pericardium The pericardium is normal by two-dimensional imaging. There is no significant pericardial effusion. CONCLUSIONS Indication: Malignant neoplasm of upper-inner quadrant of left female breast. The transthoracic study is normal by two-dimensional, color flow imaging and Doppler interrogation. Normal left ventricular size and function. Approximate ejection fraction is 65%. The right ventricle is normal in size and systolic function. Trace mitral and trace tricuspid regurgitation No wall motion abnormalities noted. Sandra Villarreal (Electronically Signed) Final Date: 04 June 2025 17:49
== END | disposition home or self-care (01) ==
PROVIDERS: PCP Obstetrics & Gynecology; Referring Provider Internal Medicine Hematology & Oncology; Visit Provider Internal Medicine Hematology & Oncology
DX: I08.1 Rheumatic disorders of both mitral and tricuspid valves (principal); C50.212 Malignant neoplasm of upper-inner quadrant of left female breast
CPT/HCPCS: 93306

== ENCOUNTER → 2025-06-11 | Outpatient (CLI) | payer MEDICAID, SELFPAY ==
--- NOTE | 2025-06-11 13:00 | XR_ITS ---
Examination: MRI shoulder arthrogram, right. Fluoroscopy AP shoulder 2 views Date and time of exam:June 11, 2025 1412 hours INDICATIONS: Right shoulder pain months A timeout was completed verifying correct patient, procedure, site, positioning. The patient was placed in a supine position for the arthrogram Technique: Skin over the anterior shoulder is prepped. Local anesthesia obtained with 1% lidocaine, 1 cc divided doses. 22-gauge Chiba needle was passed into the shoulder joint anteriorly, utilizing fluoroscopic guidance. 1 cc of Isoview 300 injected confirming position of the needle tip within the shoulder joint. 12 cc bacteriostatic 0.9% with 0.1cc gadolinium introduced into the shoulder for subsequent MRI arthrogram. The patient was in satisfactory and stable condition at completion of the procedure. Estimated blood loss 0 cc. Findings: Contrast material is present within the shoulder joint indicating successful shoulder arthrogram. Impression: Successful shoulder arthrogram for MRI study to follow. Fluoroscopy 0.2 minute radiation dose 1.10 milligray 2 spot fluoroscopic shoulder films.
--- NOTE | 2025-06-11 14:15 | XR_ITS ---
Examination: MRI shoulder, right, post intra-articular contrast Shoulder arthrogram Exam date and time:June 11, 2025 1516 hours, comparison MRI shoulder without contrast February 03, 2025. Technique: Multiple axial, sagittal and coronal sections of the shoulder have been obtained. Siemens high-resolution 1.5 Chyna, MRI scanner is utilized. Axial fat suppressed sections, TR 2350, TE 18. T1 weighted coronal images, TR 500, TE 15. T2-weighted sagittal fat saturated images, TR 3500, TE 57 T1 weighted sagittal sections, TR 504, TE 13. Shoulder arthrography is performed. Skin prepped over the shoulder joint. Maximum sterile barrier technique, hand hygiene. 2 cc 1% lidocaine administered for local anesthesia. Utilizing fluoroscopic guidance, 22-gauge needle placed in the glenoid humeral joint space. 12 cc of dilute gadolinium is introduced into the shoulder joint via an anterior approach. Axial, sagittal and coronal images are obtained post intra-articular contrast injection. Findings: Thickness tear of the rotator cuff is not confirmed Long head biceps is in the bicipital groove. No tear of biceps superior labral anchor is seen. Retraction musculotendinous junction rotator cuff is not seen Horizontal acromion. Acromioclavicular joint intact. Os acromiale is not identified. Fraying and irregularity anterior superior labral margin Bony glenoid fossa no osseous defect. Avascular necrosis is not seen. Defect posterolateral margin humeral head not seen. Impression: No rotator cuff tear is confirmed Fraying and irregularity anterior superior labral margin
== END | disposition home or self-care (01) ==
PROVIDERS: PCP Obstetrics & Gynecology; Referring Provider Nurse Practitioner Family; Visit Provider Nurse Practitioner Family
DX: M25.811 Other specified joint disorders, right shoulder (principal)
CPT/HCPCS: 23350; 73040; 73222

== ENCOUNTER → 2025-06-27 | Outpatient (CLI) | payer MEDICAID, SELFPAY ==
[2025-06-27 09:49] LABS: Basophils # (Auto) 0.0 Thou/mm3 (0.0-0.2); Basophils % (Auto) 0 % (0-2.5); Eosinophils # (Auto) 0.1 Thou/mm3 (0.0-0.5); Eosinophils % (Auto) 4 % (0-10); Hematocrit 41.3 % (36.0-46.0); Hemoglobin 13.8 g/dL (12.0-16.0); Immature Granulocytes Auto 0.01 Thou/mm3 (0.00-0.00); Lymphocytes # (Auto) 0.9 Thou/mm3 (1.0-4.8); Lymphocytes % (Auto) 25 % (10-50); Mean Corpuscular HGB Conc 33.4 g/dl (31.0-37.0); Mean Corpuscular Hemoglobin 30.8 pg (25.0-35.0); Mean Corpuscular Volume 92 fL (80-100); Monocytes # (Auto) 0.4 Thou/mm3 (0.0-0.8); Monocytes % (Auto) 11 % (0-12); Neutrophils # (Auto) 2.0 Thou/mm3 (1.8-7.7); Neutrophils % (Auto) 59 % (37-80); Nucleated Red Blood Cell # 0.00 Thou/mm3 (0.00-0.00); Nucleated Red Blood Cell % 0 /100 WBC (0); Platelet Count 163 Thou/mm3 (140-440); RDW Standard Deviation 46.7 fL (36.4-46.3); Red Blood Count 4.48 Miln/mm3 (4.00-5.20); White Blood Count 3.4 Thou/mm3 (3.6-11.0)
[2025-06-27 09:58] LABS: Alanine Aminotransferase 19 U/L (10-49); Albumin, Serum 4.4 gm/dL (3.5-5.0); Albumin/Globulin Ratio 1.8 (1.2-2.2); Alkaline Phosphatase 106 U/L (46-116); Anion Gap 8 (7-16); Aspartate Amino Transferase 27 U/L (0-34); BUN/Creatinine Ratio 26 Ratio (12-20); Bilirubin,Total 0.6 mg/dL (0.3-1.2); Blood Urea Nitrogen 21 mg/dL (9-23); Calcium 9.7 mg/dL (8.3-10.6); Calcium (Corrected) 9.7 mg/dL (8.5-10.1); Carbon Dioxide 26.8 mMol/L (20.0-31.0); Chloride 107 mMol/L (98-107); Creatinine (Component) 0.8 mg/dL (0.6-1.3); Globulin 2.5 gm/dL (2.3-3.5); Glucose 104 mg/dL (74-106); Osmolality,Calculated 286 (275-295); Potassium 4.5 mMol/L (3.4-5.1); Sodium 142 mMol/L (136-145); Total Protein 6.9 gm/dL (5.7-8.2); eGFR > 60 See Note
[2025-06-27 10:12] LABS: CA 15-3 15.3 U/mL (<32.4)
== END | disposition home or self-care (01) ==
LOC: SCTO 08:40
PROVIDERS: PCP Family Medicine; Referring Provider Internal Medicine Hematology & Oncology; Visit Provider Internal Medicine Hematology & Oncology
DX: C50.212 Malignant neoplasm of upper-inner quadrant of left female breast (principal)
CPT/HCPCS: 36415; 80053; 85025; 86300

== ENCOUNTER 2025-06-28 13:54 | Outpatient (RCR) | payer MEDICAID, SELFPAY | END 2025-07-20 23:59 | disposition home or self-care (01) | LOC: SCTC 13:54 | PROVIDERS: PCP Family Medicine; Referring Provider Family Medicine; Visit Provider Internal Medicine Hematology & Oncology | DX: C50.812 Malignant neoplasm of overlapping sites of left female breast (principal); Z17.0 Estrogen receptor positive status [ER+]; Z17.21 Progesterone receptor positive status; Z17.31 Human epidermal growth factor receptor 2 positive status; Z79.811 Long term (current) use of aromatase inhibitors | CPT/HCPCS: 96365; A4216; J1642; J3489; J7030 ==

== ENCOUNTER → 2025-08-30 | Outpatient (CLI) | payer MEDICAID, SELFPAY ==
--- NOTE | 2025-08-30 07:30 | ECHO_ITS ---
Patient Info Name: Nellie No Age: 55 years : 1970 Gender: Female Ht: 163 cm Wt: 98 kg BSA: 2.15 m2 BP: 126 / 78 mmHg HR: 79 bpm Exam Date: 08/30/2025 7:41 AM Admit Date: 08/30/2025 Site: 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 br - Primary Location: [facility] Left Ventricular Outflow Tract Name Value Normal LVOT 2D LVOT Diameter 1.9 cm Pulmonic Valve Name Value Normal PV Doppler PV Peak Velocity 103 cm/s PV Regurgitation Doppler MS Peak End Diastolic Velocity 111 cm/s Mitral Valve Name Value Normal MV Doppler MV Decel Juab 323 cm/s2 MV PHT 51 ms MV Area (PHT) 4.3 cm2 4.0-5.0 MV Diastolic Function MV E Peak Velocity 57 cm/s MV A Peak Velocity 70 cm/s MV E/A 0.8 MV Annular TDI MV Septal e' Velocity 7.4 cm/s MV E/e' (Septal) 7.7 MV Lateral e' Velocity 7.2 cm/s MV E/e' (Lateral) 7.9 MV e' Average 7.29 cm/s MV E/e' (Average) 7.8 Tricuspid Valve Name Value Normal TV Regurgitation Doppler TR Peak Velocity 215 cm/s Estimated PAP/RSVP RA Pressure 3 mmHg <=5 PA Systolic Pressure 21 mmHg <36 RV Systolic Pressure 21 mmHg <36 TV Annular TDI TV Lateral Aicha s' Velocity 13.3 cm/s >=9.5 Aortic Valve Name Value Normal AV 2D/MM AV Cusp Sep (MM) 1.1 cm AV Doppler AV Peak Velocity 97 cm/s AV Mean Gradient 2 mmHg AV VTI 18 cm AV Regurgitation 2D LVOT Area 2.8 cm2 Ventricles Name Value Normal LV Dimensions 2D/MM IVS Diastolic Thickness (2D) 0.9 cm 0.6-0.9 LVID Diastole (2D) 4.7 cm 3.8-5.2 LVIW Diastolic Thickness (2D) 0.8 cm 0.6-0.9 LVID Systole (2D) 2.9 cm 2.2-3.5 LVOT Diameter 1.9 cm LV Mass (2D Cubed) 132.32 g 67.00-162.00 LV Mass Index (2D Cubed) 62 g/m2 43-95 Relative Wall Thickness (2D) 0.34 <=0.42 IVS/LVIW Diastolic Thickness (2D) 1.13 0.00-1.50 LV Fractional Shortening/Ejection Fraction 2D/MM LV Fractional Shortening (2D) 38 % 27-45 LV EF (2D Teichholz) 69 % RV Dimensions 2D/MM TV Lateral Aicha s' Velocity 13.3 cm/s >=9.5 Atria Name Value Normal LA Dimensions LA Volume (4C A-L) 44 ml LA Volume (BP A-L) 33 ml Left Ventricle Left ventricular chamber dimension is normal. Left ventricular systolic function is normal with visually estimated ejection fraction of 60-65%. There is normal geometry noted in the left ventricle. Left ventricular segmental wall motion is normal. There is grade I diastolic dysfunction in the left ventricle. Right Ventricle Right ventricular chamber dimension is normal. Right ventricular systolic function is normal. Left Atrium Left atrial chamber dimension is normal. Right Atrium Right atrial chamber dimension is normal. Aortic Valve The aortic valve is trileaflet. There is no aortic valve sclerosis. There is no aortic valve stenosis. There is no aortic valve regurgitation. Pulmonic Valve The pulmonic valve is normal. There is no pulmonic valve stenosis. There is no pulmonic regurgitation. Mitral Valve The mitral valve has normal leaflets. There is no mitral valve stenosis. There is no mitral valve regurgitation. Tricuspid Valve The tricuspid valve leaflets are normal. There is no tricuspid valve stenosis. There is mild tricuspid valve regurgitation. No pulmonary hypertension, estimated pulmonary arterial systolic pressure is 21 mmHg and systemic blood pressure of 126 mmHg in systole. Pericardium/Pleural The pericardium appears normal. There is no pericardial effusion. No pleural effusion visualized. Inferior Vena Cava Normal inferior vena cava with >50% collapse upon inspiration consistent with normal right atrial pressure, 3 mmHg. Aorta The aortic measurements are indexed to age and body surface area. The aortic root at the sinus of Valsalva is not well visualized. The prox ascending aorta is not well visualized. Summary 1. Left ventricle size is normal and systolic function is normal. Estimated ejection fraction is 60-65%. There is grade I diastolic dysfunction. 2. Right ventricle chamber size is normal and systolic function is normal. Estimated RVSP is 21 mmHg. 3. There is mild tricuspid valve regurgitation. 4. Normal IVC with estimated RA pressure 3 mmHg. Report Signatures Finalized by Clint Kohler on 08/31/2025 12:58 AM
== END | disposition home or self-care (01) ==
PROVIDERS: PCP Family Medicine; Referring Provider Internal Medicine Hematology & Oncology; Visit Provider Internal Medicine Hematology & Oncology
DX: I07.1 Rheumatic tricuspid insufficiency (principal); I50.30 Unspecified diastolic (congestive) heart failure; C50.212 Malignant neoplasm of upper-inner quadrant of left female breast
CPT/HCPCS: 93306